=== PATIENT | male | born 1990 | race Caucasian/White ===

== ENCOUNTER 2017-12-03 23:23 | Emergency (ER) | payer SELFPAY | END 2017-12-04 01:00 | disposition home or self-care (01) | LOC: D.ER 23:23 | DX: H66.91 Otitis media, unspecified, right ear (principal) ==

== ENCOUNTER 2017-12-20 20:13 | Emergency (ER) | payer SELFPAY ==
[~2017-12-20] VITALS: Ht 185.4 cm; Wt 122.7 kg
[2017-12-20 20:19] VITALS: Ht 185.4 cm; Wt 122.7 kg
[2017-12-20 20:43] LABS: BASOPHILS 0.3 % (0-2); EOSINOPHILS 1.3 % (0-7); HEMATOCRIT 41.8 % (42.0-54.0); HEMOGLOBIN 13.9 g/dL (13.5-17.5); IMMATURE GRANULOCYTES 0.3 % (0-5); LYMPHOCYTES 17.5 % (15-50); MCH 24.5 pg (26.0-34.0); MCHC 33.3 g/dL (31.0-37.0); MCV 73.7 fL (80.0-100.0); MEAN PLATELET VOLUME 9.2 fL (7.4-10.4); MONOCYTES 7.4 % (2-11); NEUTROPHILS 73.2 % (40-80); PLATELET COUNT 314 10x3/uL (130-400); RBC 5.67 10x6/uL (4.20-6.10); RDW 15.2 % (11.5-14.5); WBC 14.2 10x3/uL (4.8-10.8)
[2017-12-20 21:30] LABS: APTT 28.9 SECONDS (22.8-39.4); INR 0.94 (0.85-1.17); PROTIME 12.2 SECONDS (11.6-15.0)
[2017-12-20 21:32] LABS: D-DIMER-QUANTITATIVE 0.28 ug/mLFEU (0.20-0.54)
[2017-12-20] MEDS ORDERED: VOLTAREN75 MG PO (21:51)
[2017-12-20] MEDS ORDERED: ROBAXIN-750750 MG PO (21:52)
[2017-12-20 22:39] LABS: ALBUMIN 3.3 g/dL (3.4-5.0); ALKALINE PHOSPHATASE 70 U/L (46-116); ALT (SGPT) 56 U/L (10-68); CALC OSMOLALITY 277 mosm/kg (275-300); CALCIUM 8.6 mg/dL (8.5-10.1); CARBON DIOXIDE 27.1 mmol/L (21.0-32.0); CHLORIDE - SERUM 103 mmol/L (98-107); CREATININE - SERUM 0.9 mg/dL (0.6-1.3); GLUCOSE 112 mg/dL (74-106); PROTEIN - SERUM 7.8 g/dL (6.4-8.2); SODIUM 138 mmol/L (136-145); UREA NITROGEN 16 mg/dL (7-18); eGFR NON AFRICAN AMERICAN > 90 mL/min (90-120)
[2017-12-20 22:51] LABS: CKMB 0.6 U/L (0.0-3.6); CREATINE KINASE 88 UL (21-232); PRO BNP 8 pg/mL (0-125); TROPONIN-I < 0.017 ng/mL (0.000-0.060)
[2017-12-21 00:51] VITALS: BP 124/91
== END 2017-12-21 00:52 | disposition home or self-care (01) ==
LOC: D.ER 20:13
PROVIDERS: Family Medicine
DX: M25.512 Pain in left shoulder (principal); V43.52XA Car driver injured in collision with other type car in traffic accident, initial encounter; Y93.89 Activity, other specified; Y92.410 Unspecified street and highway as the place of occurrence of the external cause